=== PATIENT | female | born 1995 | race Hispanic/Latino ===

== ENCOUNTER 2024-12-27 16:04 | Emergency (ER) | payer BC ==
[~2024-12-27] VITALS: Ht 167.6 cm; Wt 154.2 kg
[2024-12-27 16:10] VITALS: PULSE 82; RESP 18; TEMP 98.2
[2024-12-27 16:32] VITALS: BP 163/98; PULSE 83; RESP 18; O2SAT 96
== END 2024-12-27 16:38 | disposition home or self-care (01) ==
LOC: ER 16:08
DX: R05.9 Cough, unspecified (principal); R07.89 Other chest pain; R53.83 Other fatigue; I10 Essential (primary) hypertension
CPT/HCPCS: 93005; 99284